=== PATIENT | female | born 1965 | race Asian ===

== ENCOUNTER → 2017-03-13 | Outpatient (CLI) | payer BC ==
[~2017-03-13] MED LIST: ARTHROTEC 775 MG/TAB PO; CITALOPRAM HYDR20 MG PO; EFFEXOR 75M75 MG/TAB PO; HYZAAR 12.5 MG-1 TAB PO; LISINOPRIL20 MG PO; NORVASC 5MG5 MG/TAB PO; PRAVACHOL 40MG40 MG PO; PRIL40 PO; ZYRTEC 10MG10 MG PO; ZYRTEC-D 12HR 51 TER PO
== END ==
LOC: MC.RAD 09:55
DX: Z12.31 Encounter for screening mammogram for malignant neoplasm of breast (principal)

== ENCOUNTER → 2018-04-01 | Outpatient (CLI) | payer BC | LOC: MC.RAD 14:16 | DX: Z12.31 Encounter for screening mammogram for malignant neoplasm of breast (principal) ==

== ENCOUNTER → 2019-07-09 | Outpatient (CLI) | payer BC | LOC: MC.RAD 05-21 16:00 | DX: Z12.31 Encounter for screening mammogram for malignant neoplasm of breast (principal) ==

== ENCOUNTER → 2021-04-21 | Outpatient (CLI) | payer OTHER | LOC: COL.RAD 13:20 | DX: R00.2 Palpitations (principal) | CPT/HCPCS: Q9967 ==

== ENCOUNTER → 2021-06-20 | Outpatient (CLI) | payer OTHER | LOC: MC.RAD 07:17 | DX: Z12.31 Encounter for screening mammogram for malignant neoplasm of breast (principal) ==

== ENCOUNTER → 2022-07-12 | Outpatient (CLI) | payer OTHER | LOC: COL.RAD 14:04 | DX: R07.9 Chest pain, unspecified (principal); M25.519 Pain in unspecified shoulder ==

== ENCOUNTER → 2023-10-21 | Outpatient (CLI) | payer OTHER | LOC: MC.RAD 05:36 | DX: Z12.31 Encounter for screening mammogram for malignant neoplasm of breast (principal) ==